=== PATIENT | female | born 2000 | race Caucasian/White ===

== ENCOUNTER 2022-07-22 10:34 | Emergency (ER) | payer OTHER ==
[~2022-07-22] VITALS: Ht 157.5 cm; Wt 86.8 kg
[2022-07-22] MEDS ORDERED: FAMOTIDINE 20 MG TAB PO STA (11:38)
[2022-07-22] MEDS ORDERED: FAMOTIDINE 20 MG TAB ONE (11:48)
[2022-07-22] MEDS ORDERED: PEPCID AC10 MG PO (13:21)
== END 2022-07-22 13:29 | disposition home or self-care (01) ==
LOC: FSED 10:42
DX: R10.13 Epigastric pain (principal); K59.00 Constipation, unspecified
CPT/HCPCS: 74176; 81003; 81025; 99283